=== PATIENT | female | born 1980 | race African-American/Black ===

== ENCOUNTER 2016-08-18 18:04 | Emergency (ER) | payer BC, OTHER ==
[~2016-08-18] VITALS: Ht 170.2 cm; Wt 117.9 kg
--- NOTE | ~2016-08-18 | EKG ---
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
[~2016-08-18 18:04] MED LIST: AMOXICILLIN875 MG PO; APAP/CODEI12 MG/5 M1 PO; ASPIR 8181 MG PO; CARVEDILOL12.5 MG PO; CIPROFLOXACIN500 M1 PO; CLARITIN10 MG PO; COMPAZINE5 MG PO; COREG; COZAAR 50 MG TA50 M2 PO; COZAAR 50 MG TA50 MG PO; FLEXERIL PO; FLONASE 0.05%50 MCG NASAL; HYDROCHLOROTHIA25 M2 PO; HYDROCHLOROTHIA50 MG PO; IBUPROFEN 600600 M1 PO; LISINOPRIL10 MG PO; MEDROLDOSEPACK PO; NORCO 5-325 TA1 EACH PO; NORVASC 5 MG TAB5 MG PO; NUVIGIL250 MG PO; PENICILLIN VK250 MG PO; PHENTERMINE HCL8 MG PO; PLAVIX 75 MG TA75 M1 PO; PROAIR HFA8.5 GM IH; RITALIN20 MG PO; TESSALON PERLE100 MG PO; ZPAK PO
[2016-08-18] MEDS ORDERED: ASPIR-TRIN325 MG PO (18:48)
[2016-08-18 18:52] LABS: HEMATOCRIT 39.4 % (37.0-47.0); HEMOGLOBIN 13.6 gm/dL (12.0-15.0); MCH 29.4 pg (26.0-34.0); MCHC 34.4 % (28.0-37.0); MCV 85.4 fL (80.0-100.0); RBC 4.62 mil/uL (4.20-5.00); RDW 14.8 % (10.5-14.5)
[2016-08-18 19:06] LABS: APTT 23.6 Seconds (24.5-32.8); INR 1.1
[2016-08-18 19:36] VITALS: BP 116/84
== END 2016-08-18 19:37 | disposition home or self-care (01) ==
LOC: ER 18:04
PROVIDERS: Physician Assistant
DX: M79.604 Pain in right leg (principal); I10 Essential (primary) hypertension; F17.210 Nicotine dependence, cigarettes, uncomplicated

== ENCOUNTER 2018-06-27 11:28 | Emergency (ER) | payer BC, OTHER ==
[~2018-06-27] VITALS: Ht 170.2 cm; Wt 108.9 kg
[~2018-06-27 11:28] MED LIST changes: +ASPIR-TRIN325 MG PO
[2018-06-27] MEDS ORDERED: COZAAR 25 MG TA25 M1 PO (11:41)
[2018-06-27] MEDS ORDERED: CARVEDILOL12.5 MG PO (11:41)
[2018-06-27] MEDS ORDERED: RITALIN20 MG PO (11:42)
[2018-06-27] MEDS ORDERED: HYDROCHLOROTH12.5 M1 PO (11:42)
[2018-06-27] MEDS ORDERED: PLAVIX 75 MG TA75 M1 PO (11:42)
[2018-06-27] MEDS ORDERED: NORCO 5-325 TA1 EACH PO (13:37)
[2018-06-27 13:58] VITALS: BP 150/86
== END 2018-06-27 13:59 | disposition home or self-care (01) ==
LOC: ER 11:28
DX: M25.572 Pain in left ankle and joints of left foot (principal); M25.562 Pain in left knee; M25.552 Pain in left hip; I10 Essential (primary) hypertension; F17.210 Nicotine dependence, cigarettes, uncomplicated; Z86.711 Personal history of pulmonary embolism; W00.0XXA Fall on same level due to ice and snow, initial encounter; Y93.89 Activity, other specified; Y92.89 Other specified places as the place of occurrence of the external cause; Y99.8 Other external cause status

== ENCOUNTER 2020-09-23 03:38 | Emergency (ER) | payer OTHER ==
[~2020-09-23] VITALS: Ht 170.2 cm; Wt 112.5 kg
[~2020-09-23 03:38] MED LIST changes: +COZAAR 25 MG TA25 M1 PO; +HYDROCHLOROTH12.5 M1 PO
[2020-09-23 04:09] LABS: ABSOLUTE NEUTROPHILS 7.1 thou/uL (1.4-8.2); BASOPHILS 0.6 % (0.0-2.0); EOSINOPHILS 0.6 % (0.0-3.0); HEMATOCRIT 39.9 % (37.0-47.0); HEMOGLOBIN 13.7 gm/dL (12.0-15.0); LYMPHOCYTES 28.7 % (24.0-44.0); MCH 30.7 pg (26.0-34.0); MCHC 34.3 g/dL (28.0-37.0); MCV 89.5 fL (80.0-100.0); MONOCYTES 5.1 % (1.0-8.0); PLATELET COUNT 404 thou/uL (150-400); RBC 4.46 mil/uL (4.20-5.00); RDW 14.2 % (10.5-14.5)
[2020-09-23 04:22] LABS: URINE BILIRUBIN NEGATIVE (Negative); URINE BLOOD NEGATIVE (Negative); URINE CLARITY CLEAR; URINE COLOR YELLOW; URINE GLUCOSE-RANDOM* NEGATIVE (Negative); URINE KETONES NEGATIVE (Negative); URINE NITRITE-REFLEX NEGATIVE (Negative); URINE PROTEIN (DIPSTICK) TRACE (Negative); URINE UROBILINOGEN 0.2 E.U./dl (0.2-1.0)
[2020-09-23 04:24] LABS: URINE LEUKOCYTES-REFLEX 1+ (Negative)
[2020-09-23 04:30] LABS: ANION GAP 17 mmol/L (7-16); BUN 7 mg/dL (7-18); CALCIUM 9.5 mg/dL (8.5-10.1); CHLORIDE 98 mmol/L (98-107); CO2 22 mmol/L (21-32); CREATININE 0.9 mg/dL (0.6-1.0); GLUCOSE 115 mg/dL (74-106); POTASSIUM 3.6 mmol/L (3.5-5.1); SODIUM 137 mmol/L (136-145)
[2020-09-23 04:35] LABS: AMP/METHAMP Negative (Negative); BARBITURATES Negative (Negative); BENZODIAZEPINES Negative (Negative); COCAINE Negative (Negative); METHADONE Negative (Negative); OPIATES Negative (Negative); PCP Negative (Negative)
[2020-09-23 04:38] LABS: ALBUMIN 4.1 g/dL (3.4-5.0); DIRECT BILIRUBIN < 0.1 mg/dL (<0.1-0.2); MAGNESIUM 1.8 mg/dL (1.8-2.4); PHOSPHORUS 1.6 mg/dL (2.6-4.7); SALICYLATE < 2.8 mg/dL (2.8-20.0); SGOT 19 U/L (15-37); SGPT 22 U/L (14-59); TOTAL BILIRUBIN 0.4 mg/dL (0.2-1.0); TOTAL PROTEIN 7.8 g/dL (6.4-8.2); TROPONIN-I <0.06 ng/mL (<0.06)
[2020-09-23 04:42] LABS: CRYSTALS None Seen /LPF (None Seen); HYALINE CASTS 0-3 Few /LPF (None Seen); MUCUS 0-3 Light strn/LPF (None Seen); SQUAMOUS 4-10 Moderate /LPF (0-3); URINE RBC 0-2 Rare /HPF (0-2); URINE WBC-REFLEX 0-5 Rare /HPF (0-5)
[2020-09-23 06:00] VITALS: BP 142/87
--- NOTE | 2020-09-24 14:06 | EKG ---
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
== END 2020-09-23 06:25 | disposition home or self-care (01) ==
LOC: ER 03:38
PROVIDERS: Emergency Medicine
DX: F10.129 Alcohol abuse with intoxication, unspecified (principal); R41.0 Disorientation, unspecified; F15.129 Other stimulant abuse with intoxication, unspecified; I10 Essential (primary) hypertension; Z90.49 Acquired absence of other specified parts of digestive tract; Y90.3 Blood alcohol level of 60-79 mg/100 ml